=== PATIENT | male | born 1990 | race Caucasian/White ===

== ENCOUNTER 2017-08-12 15:25 | Emergency (ER) | payer BC ==
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
--- NOTE | 2017-08-13 07:36 | CR ---
Right knee: Four views of the right knee were obtained. Comparison: Previous three-view right knee exam dated 01/20/13. Previous ACL repair is noted. Slight osteophyte is noted off the lateral tibial margin which is more prominent than on previous exam. Mild medial joint space narrowing is noted which appears stable. Joint effusion appears to be present. No acute bony abnormality is seen. Impression: 1. Joint effusion is suggested. 2. Previous ACL repair. 3. Mild degenerative change as described above. 4. No acute bony abnormality is identified. Diagnostic code #3
== END 2017-08-12 17:07 | disposition home or self-care (01) ==
LOC: JD.ED 15:25 → SUPCPDRO 15:25 → JD.ED 17:07
DX: S83.401A Sprain of unspecified collateral ligament of right knee, initial encounter (principal); V19.3XXA Pedal cyclist (driver) (passenger) injured in unspecified nontraffic accident, initial encounter
CPT/HCPCS: 73564-26-RT; 73564-RT; 99283

== ENCOUNTER 2022-08-13 05:18 | Emergency (ER) | payer BC, OTHER ==
[2022-08-13] MEDS ORDERED: Famotidine 20 MG/2 ML SDV IVPUSH ONE (05:34)
[2022-08-13] MEDS ORDERED: Lactated Ringers 1,000 ML IV ONE (05:34)
[2022-08-13] MEDS ORDERED: Alum Hydrox/Mag Hydrox/Simeth 30 ML, Lidocaine 2% 15 ML PO ONE ×2 (05:34)
[2022-08-13] MEDS ORDERED: Ketorolac 30 MG/ML SDV IVPUSH ONE (05:36)
== END 2022-08-13 07:38 | disposition home or self-care (01) ==
LOC: JD.ED 05:18
DX: R10.33 Periumbilical pain (principal); Z79.899 Other long term (current) drug therapy
CPT/HCPCS: 36415; 74177; 80053; 81003; 83605; 83690; 85025; 96361; 96374; 96375; 99284; A9270; J1885; J3490; J7120